=== PATIENT | female | born 2000 | race Caucasian/White ===

== ENCOUNTER 2024-11-18 09:02 | Outpatient (CLI) | payer OTHER, SELFPAY ==
--- NOTE | 2024-11-18 09:53 | P.TNLD_ITS ---
Visit Information Visit Information Date of evaluation: 11/18/24 Primary OB Provider: Teresita Wilkins On-call OB Provider: Mee Leyva Reason for Evaluation: Yes rule out labor and Yes rupture of membranes Comments/Additional reasons for admission: Patient is a at 39w6d who is here for concern of ROM. Vital Signs Vital Signs: BP 135/89; repeat 130/80 P 98 PFSH Medical History (Updated 11/14/24 @ 16:28 by Teresita Wilkins DO) Wrist fracture, left Surgical History (Updated 11/10/24 @ 15:13 by Angie Lucio, RN) [place] teeth extracted Family History (Updated 11/10/24 @ 15:16 by Angie Lucio, RN) Mother Diabetes mellitus Hypertension Father Hypertension History of thyroidectomy Thyroid disease Aunt Thyroid disease Grandfather Heart disease Grandfather Heart disease Social History marital status: number of children: 1 household members: spouse and children lives independently: Yes caregiver/support person: Yes housing: house pets and animals: No education level: college (some college) occupational status: unemployed current occupational exposures/hazards: No special melly needs: No travel history: recent (domestic only) seatbelt use: always helmet use: Yes water heater temp set < 120 deg: Yes working smoke detector in home: Yes fire extinguisher in home: Yes carbon monox detector in home: Yes firearms in home: Yes firearms unloaded and locked: Yes do you feel safe at home: Yes (answered w/ present) Smoking Status: Never smoker second hand exposure: No alcohol intake: former (very rarely when not ) substance use type: does not use during the past year weight has: other (back to normal non- weight prior to ) well-balanced diet: rarely or never daily servings fruits/ve-1 (1-2) caffeine: No Type(s) of exercise: walking Evaluation Evaluation Baseline heart rate: 145 Variability: Average (6-10) monitor accelerations: Present Monitor Decelerations: Absent Diagnosis, Plan/Disposition Plan/Disposition Plan: at 39w6d with concern for ROM. Amnisure negative. Cat 1 strip. Initial BP high end of normal. Repeat improved - 130/80. Safe for discharge home. OB Disposition: home
== END 2024-11-18 10:19 | disposition home or self-care (01) ==
LOC: LABOR 10:25 → OB 11:48
PROVIDERS: Referring Provider Student in an Organized Health Care Education/Training Program; Visit Provider Student in an Organized Health Care Education/Training Program
DX: Z03.71 Encounter for suspected problem with amniotic cavity and membrane ruled out (principal); Z3A.36 36 weeks gestation of pregnancy
CPT/HCPCS: 59025; 84112; G0378; G0379

== ENCOUNTER → 2024-11-29 11:38 | Outpatient (CLI) | payer OTHER, SELFPAY ==
[2024-11-30 13:20] LABS: Strep Grp B PCR NEG for Grp B Strep
== END ==
PROVIDERS: Visit Provider Student in an Organized Health Care Education/Training Program
DX: Z36.85 Encounter for antenatal screening for Streptococcus B (principal)
CPT/HCPCS: 87653

== ENCOUNTER 2024-12-09 19:28 | Inpatient (IN) | payer OTHER, SELFPAY ==
[2024-12-09 19:31] VITALS: BP 149/89
[2024-12-09 20:22] LABS: Add Manual Diff / Slide Review NO; Basophils Absolute Auto 100 /uL (0-100); Basophils Percent Auto 0.7 % (0-2); Eosinophils Absolute Auto 100 /uL (0-450); Eosinophils Percent Auto 0.7 % (2-4); Hematocrit 40.9 % (36-46); Lymphocytes Absolute Auto 2100 /uL (1100-4500); Lymphocytes Percent Auto 22.8 % (25-40); Mean Corpuscular HGB Conc 34.1 % (30-36); Mean Corpuscular Hemoglobin 30.7 PG (26-34); Mean Corpuscular Volume 90.1 fL (80-100); Monocytes Absolute Auto 700 /uL (0-900); Monocytes Percent Auto 7.3 % (3-14); Neutrophils Absolute Auto 6400 /uL (1500-7000); Neutrophils Percent Auto 68.5 % (50-75); Platelet Count 178 X10^3/uL (150-400); Red Blood Cell Count 4.55 X10^6/uL (4.0-5.2); Red Cell Distribution Width 13.2 % (11.6-14.8); White Blood Cell Count 9.4 X10^3/uL (4.5-11.0)
[2024-12-09 20:34] LABS: Alanine Aminotransferase 17 IU/L (<35); Albumin 3.7 g/dL (3.5-5.0); Albumin Globulin Ratio 1.2 (1.0-2.8); Alkaline Phosphatase 180 U/L (38-126); Aspartate Aminotransferase 31 IU/L (14-36); BUN Creatinine Ratio 21.9 (6-22); Bilirubin Total 0.3 mg/dL (0.2-1.3); Blood Urea Nitrogen 14 mg/dL (7-17); Calcium 9.2 mg/dL (8.4-10.2); Carbon Dioxide 20 mmol/L (22-32); Chloride 106 mmol/L (98-107); Estimated Glomerular Filt Rate > 60 mL/min (>60); Globulin 3.2 g/dL (1.7-4.1); Glucose 82 mg/dL (70-100); Sodium 134 mmol/L (137-145); Total Protein 6.9 g/dL (6.3-8.2); Uric Acid 6.4 mg/dL (2.5-6.2)
[2024-12-09 20:36] LABS: HEMOLYSIS 51 (0-50)
[2024-12-09 20:39] LABS: Creatinine Urine Random 107.39 mg/dL; Protein (Total) Urine Random 6 mg/dL (0-12); Protein Creatinine Ratio Urine 0.05 GRAM/24H
[2024-12-09] MEDS: ACETAMINOPHEN 325 MG TABLET 975 MG PO (21:14)
[2024-12-09] MEDS: LABETALOL 100 MG TABLET PO (21:14)
[2024-12-10 08:50] VITALS: BP 137/92; PULSE 70
[2024-12-10] MEDS: miSOPROStoL 25 MCG TABLET PO ×2 (08:50→13:01)
[2024-12-10] MEDS: LABETALOL 100 MG TABLET PO (08:50)
[2024-12-10 09:20] LABS: Add Manual Diff / Slide Review NO; Basophils Absolute Auto 0 /uL (0-100); Basophils Percent Auto 0.2 % (0-2); Eosinophils Absolute Auto 100 /uL (0-450); Eosinophils Percent Auto 0.8 % (2-4); Hematocrit 42.4 % (36-46); Hemoglobin 14.4 g/dL (12.0-16.0); Lymphocytes Absolute Auto 1700 /uL (1100-4500); Lymphocytes Percent Auto 21.6 % (25-40); Mean Corpuscular Hemoglobin 30.6 PG (26-34); Mean Corpuscular Volume 89.9 fL (80-100); Monocytes Absolute Auto 400 /uL (0-900); Monocytes Percent Auto 5.3 % (3-14); Neutrophils Absolute Auto 5700 /uL (1500-7000); Neutrophils Percent Auto 72.1 % (50-75); Platelet Count 173 X10^3/uL (150-400); Red Blood Cell Count 4.72 X10^6/uL (4.0-5.2); Red Cell Distribution Width 13.2 % (11.6-14.8); White Blood Cell Count 7.9 X10^3/uL (4.5-11.0)
[2024-12-10 10:09] LABS: Alanine Aminotransferase 18 IU/L (<35); Albumin 3.8 g/dL (3.5-5.0); Albumin Globulin Ratio 1.2 (1.0-2.8); Alkaline Phosphatase 200 U/L (38-126); Aspartate Aminotransferase 26 IU/L (14-36); BUN Creatinine Ratio 17.7 (6-22); Bilirubin Total 0.5 mg/dL (0.2-1.3); Blood Urea Nitrogen 11 mg/dL (7-17); Carbon Dioxide 17 mmol/L (22-32); Chloride 105 mmol/L (98-107); Estimated Glomerular Filt Rate > 60 mL/min (>60); Globulin 3.1 g/dL (1.7-4.1); Glucose 104 mg/dL (70-100); HEMOLYSIS < 15 (0-50); Potassium 3.6 mmol/L (3.4-5.1); Sodium 135 mmol/L (137-145); Total Protein 6.9 g/dL (6.3-8.2)
[2024-12-10 10:11] VITALS: BP 125/67; PULSE 65
--- NOTE | 2024-12-10 13:25 | P.HPOB_ITS ---
OB HPI Date/Time Date of admission: 12/10/24 Date Patient Seen: 12/10/24 Time Patient Seen: 13:25 History of Present Condition Chief complaint: told to come in [facility] Calculator 2 Estimated Delivery Date Method Current WG Current Estimate 12/17/24 LMP (Certain) 39w 0d Other Estimates 12/17/24 Manual 39w 0d Estimated Gestational Age (weeks): 39 : 3 Para: 1 Narrative: Patient presented last evening with elevated blood pressures. She also had a headache. Overnight initially her headache went away but then returned this morning. Blood pressures continued to be high. A decision was made to keep the patient and do cervical ripening/induction of labor. She has received 2 oral doses of misoprostol 25 mcg care: good care, initiated at week # (8), number of visits (11) and pounds weight gain (15) Dating criteria OB: LMP confirmed by 1st trimester US Ultrasounds: normal 1st trimester US and normal mid trimester US Obstetrical complications: gestational hypertension Medical complications OB: none Indications Indication for induction OB: gestational HTN/pre-eclampsia Preadmission Labs Last OB Lab Results: 2 Blood Type O Positive 12/10/24 08:30 Antibody Screen Negative 12/10/24 08:30 Hct 42.4 % (36-46) 12/10/24 08:50 Hgb 14.4 g/dL (12.0-16.0) 12/10/24 08:50 Group B Strep (PCR) Neg for grp b strep 11/29/24 11:45 -: Chlamydia screen: negative, Gonorrhea screen: negative and Urine: negative -: PAP smear: Normal External Labs -: Urine: negative Prior (ies) Past Pregnancies Del. Date GA/Weeks Labor Lgth Wt Sex Route Outcome Anesthesia Place Delv Breastfeed Preg Comp Name 01/04/22 37 16 6 lb 8 oz Male vaginal forceps live - full term epidural [facility] 3 month s pre- eclampsia Geoffrey 11/05/23 10 spontaneous Delivery Date: 11/05/23 Last Updated by: Angie Lucio RN passed spontaneously, no complications Hx # Term Pregnancies: 1 Hx # Pregnancies: 0 Number of Living Children: 1 Multiple births: 0 Spontaneous abortions: 1 Ectopic pregnancies: 0 Elective abortions: 0 Evaluation Evaluation Baseline heart rate: 150 Variability: Moderate (11-25) monitor accelerations: Present Monitor Decelerations: Absent Contraction Frequency (minutes): 10 Uterine Contraction Intensity: Mild Status: Category l Dilation (cm): 0 Effacement (%): 50 Dilation: Closed Effacement: 40-50% station: -3 Position of cervix: posterior Consistency: soft Lund score: 3 [facility] Medical History (Updated 11/23/24 @ 19:12 by Belén Lord) Painful menstrual periods (~2018) Hypertension (~2021) History of forceps delivery in prior , currently History of pre-eclampsia in prior , currently Wrist fracture, left Surgical History (Updated 11/23/24 @ 19:12 by Belén Lord) Anesthesia [place] teeth extracted (~02/03/24) Family History (Updated 11/23/24 @ 19:15 by Belén Lord) Mother Diabetes mellitus Hypertension Hyperlipidemia Father Hypertension History of thyroidectomy Thyroid disease Aunt Thyroid disease Grandfather Heart disease Grandfather Heart disease Cancer Sister Diabetes mellitus Grandmother Hypertension Grandmother Hyperlipidemia Social History marital status: number of children: 1 household members: spouse and children lives independently: Yes caregiver/support person: Yes housing: house pets and animals: No education level: college (some college) occupational status: unemployed current occupational exposures/hazards: No special melly needs: No travel history: recent (domestic only) seatbelt use: always helmet use: Yes water heater temp set < 120 deg: Yes working smoke detector in home: Yes fire extinguisher in home: Yes carbon monox detector in home: Yes firearms in home: Yes firearms unloaded and locked: Yes do you feel safe at home: Yes (answered w/ present) Smoking Status: Never smoker second hand exposure: No alcohol intake: former (very rarely when not ) substance use type: does not use during the past year weight has: other (back to normal non- weight prior to ) well-balanced diet: rarely or never daily servings fruits/ve-1 (1-2) caffeine: No Type(s) of exercise: walking Meds Home Medications and Allergies Home Medications Medication Instructions Recorded Confirmed Type aspirin 81 mg tablet,delayed 81 mg PO DAILY 11/10/24 11/29/24 History release (Adult Low Dose Aspirin) vitamin-ferrous sulfate tab PO 11/10/24 11/29/24 History 27 mg iron-folic acid 0.8 mg tablet Allergies Allergy/AdvReac Type Severity Reaction Status Date / Time No Known Drug Allergies Allergy Unverified 11/29/24 11:36 OB Exam Vital signs Blood Pressure: 158/98 Pulse Rate: 90 Narrative Exam Narrative: Generally: Patient in bed, no acute distress Lungs: Clear to auscultation bilaterally Cardiovascular: Regular rate and rhythm Fundal height: 39 cm Estimated weight: 7-1/2 lb Extremities: DTR 2+, 1+ edema non-pitting, no clonus Objective Labs 12/10/24 08:50 12/10/24 08:30 Labs: Laboratory Results - last 24 hr 12/09/24 12/09/24 12/10/24 19:40 20:13 08:30 WBC 9.4 RBC 4.55 Hgb 14.0 Hct 40.9 MCV 90.1 MCH 30.7 MCHC 34.1 RDW 13.2 Plt Count 178 Neut % (Auto) 68.5 Lymph % (Auto) 22.8 L [place] % (Auto) 7.3 Eos % (Auto) 0.7 L Baso % (Auto) 0.7 Neut # (Auto) 6400 Lymph # (Auto) 2100 [place] # (Auto) 700 Eos # (Auto) 100 Baso # (Auto) 100 Sodium 134 L 135 L Potassium 4.0 3.6 Chloride 106 105 Carbon Dioxide 20 L 17 L BUN 14 11 Creatinine 0.64 0.62 Estimated GFR > 60 > 60 BUN/Creatinine Ratio 21.9 17.7 Glucose 82 104 H Uric Acid 6.4 H Calcium 9.2 9.0 Total Bilirubin 0.3 0.5 AST 31 26 ALT 17 18 Alkaline Phosphatase 180 H 200 H Total Protein 6.9 6.9 Albumin 3.7 3.8 Globulin 3.2 3.1 Albumin/Globulin Ratio 1.2 1.2 U Random Total Protein 6 Urine Creatinine 107.39 Protein/Creatinin Ratio 0.05 Blood Type O Positive Antibody Screen Negative 12/10/24 08:50 WBC 7.9 RBC 4.72 Hgb 14.4 Hct 42.4 MCV 89.9 MCH 30.6 MCHC 34.0 RDW 13.2 Plt Count 173 Neut % (Auto) 72.1 Lymph % (Auto) 21.6 L [place] % (Auto) 5.3 Eos % (Auto) 0.8 L Baso % (Auto) 0.2 Neut # (Auto) 5700 Lymph # (Auto) 1700 [place] # (Auto) 400 Eos # (Auto) 100 Baso # (Auto) 0 Sodium Potassium Chloride Carbon Dioxide BUN Creatinine Estimated GFR BUN/Creatinine Ratio Glucose Uric Acid Calcium Total Bilirubin AST ALT Alkaline Phosphatase Total Protein Albumin Globulin Albumin/Globulin Ratio U Random Total Protein Urine Creatinine Protein/Creatinin Ratio Blood Type Antibody Screen Assessment and Plan Assessment and Plan Assessment and Plan narrative: Assessment: 24-year-old 3 para 1 at 39 weeks' gestation with gestational hypertension History of severe preeclampsia History of forceps assisted delivery due to nonreassuring heart rate tracing Patient with persistent elevated blood pressures and headache Normal preeclampsia labs Unfavorable cervix Plan: Cervical ripening with misoprostol Pitocin induction of labor when cervix favorable Labetalol 100 mg b.i.d. Time-Based Coding :: [TOTAL MINUTES] spent with patient and on the chart (including review of chart, obtaining history, exam, reviewing outside data, placing orders, documenting exam and treatment plan, and counseling patient) on [DATE].
[2024-12-10 13:35] VITALS: BP 158/98; PULSE 90
[2024-12-10] MEDS: LACTATED RINGERS 1,000 ML 100 ML IV (16:26)
[2024-12-10] MEDS: OXYTOCIN PREMIX 30 UNIT/500 ML PLAST..BAG IV (16:34)
--- NOTE | 2024-12-10 20:25 | PM.OBPNLAB ---
Date/Time Date Patient Seen: 12/10/24 Time Patient Seen: 20:25 Pain Control Pain control: tolerating well Pelvic Exam Dilation (cm): 1 Effacement (%): 50 station: -3 Amniotic membrane status: Intact Contractions Pitocin rate (mU/min): 2 Contraction frequency (min): 5 Contraction pattern: Irregular Contraction intensity: Mild Status status: Category l Heart Rate Baseline: 135 Monitor Accelerations: Present Monitor Decelerations: Absent Monitor Variability: Moderate Assessment and Plan Assessment: induction ongoing Comments: Will check cervix at 2215 and if there is no significant cervical change, we will stop Pitocin and restart in am Epidural as needed Expectant management to
[2024-12-10] MEDS: NIFEdipine 30 MG TAB ER PO (22:29)
--- NOTE | 2024-12-11 00:08 | PM.AN.REGBLK ---
Regional Block Pre-procedure PMH/ROS narrative: 39/0. Presented with elevated BP and H/A, admitted for IOL. Now requesting epidural for labor pain management Exam narrative: See pre-anesthesia evaluation ASA Class: II Labs: Hct 42.4 % (36-46) 12/10/24 08:50 Plt Count 173 X10^3/uL (150-400) 12/10/24 08:50 Medications: Current Medications Generic Name Dose Route Start Last Admin Trade Name Freq PRN Reason Stop Dose Admin Calcium Carbonate 1,000 mg 12/10/24 07:56 Calcium Carbonate 500 Mg Tab PO Q2HR PRN Dyspepsia Carboprost Tromethamine 250 mcg 12/10/24 07:56 Carboprost 250 Mcg/Ml Ampul IM Q90M PRN Bleeding Diphenhydramine HCl 25 mg 12/10/24 23:14 Diphenhydramine 50 Mg/Ml Vial IV Q10M PRN Pruritis Ephedrine Sulfate 10 mg 12/10/24 23:14 Ephedrine 50 Mg/Ml Vial IV Q5M PRN Blood pressure decrease more than 20% of baseline. Fentanyl 50 mcg 12/10/24 07:56 Fentanyl 100 Mcg/2 Ml Inj IV Q1H PRN Pain, Moderate (4-6) Oxytocin/Lactated Ringer's 30 unit in 500 mls @ 200 mls/hr 12/10/24 07:56 Oxytocin Premix IV CONT PRN Bleeding Protocol Tranexamic Acid 1,000 mg/ 100 mls @ 600 mls/hr 12/10/24 07:56 Sodium Chloride IV NOW PRN Bleeding Oxytocin/Lactated Ringer's 30 unit in 500 mls @ 1 mls/hr 12/10/24 16:45 12/10/24 16:34 Oxytocin Premix IV 1 milliunit/min TITRATE SUZIE 1 mls/hr Administration Protocol 1 MILLIUNIT/MIN Lactated Ringer's 1,000 mls @ 1,000 mls/hr 12/10/24 23:14 Lactated Ringers IV 12/11/24 00:13 BOLUS ONE FENT 2MCG/ML BUPIV 0.125% EPI 200 mcg in 100 mls @ 6 mls/hr 12/10/24 23:15 Fentanyl/Bupiv/Ns 2mcg/Ml - 0.125% EPIDURAL CONT SUZIE Labetalol HCl 100 mg 12/10/24 09:00 12/10/24 08:50 Labetalol 100 Mg Tablet PO 100 mg BID SUZIE Administration Lidocaine HCl 20 ml 12/10/24 07:56 Lidocaine 1% 20 Ml INJ INTRA-OP PRN Post Delivery Methylergonovine Maleate 0.2 mg 12/10/24 07:56 Methylergonovine 0.2 Mg Tablet PO Q6HR PRN Heavy Bleeding Methylergonovine Maleate 0.2 mg 12/10/24 07:56 Methylergonovine 0.2 Mg/Ml Vial IM NOW PRN Bleeding Mineral Oil 30 ml 12/10/24 07:56 Mineral Oil 30 Ml Udc TOP PRN PRN Version Misoprostol 800 mcg 12/10/24 07:56 Misoprostol 200 Mcg Tablet ID NOW PRN Bleeding Misoprostol 400 mcg 12/10/24 07:56 Misoprostol 200 Mcg Tablet SL NOW PRN Bleeding Misoprostol 50 mcg 12/10/24 13:31 Misoprostol 200 Mcg Tablet SL Q4H PRN Labor Induction Nalbuphine HCl 2.5 mg 12/10/24 23:14 Nalbuphine 20 Mg/Ml Ampul IV Q10M PRN Pruritis Naloxone HCl 0.2 mg 12/10/24 07:56 Naloxone 0.4 Mg/Ml Vial IV Q2MIN PRN Opiate Reversal Ondansetron HCl 4 mg 12/10/24 07:56 Ondansetron 4 Mg/2 Ml Inj IV Q4HR PRN Nausea And Vomiting Oxytocin 10 unit 12/10/24 07:56 Oxytocin 10 Unit/Ml Vial IM NOW PRN Bleeding Zolpidem Tartrate 5 mg 12/09/24 21:36 Zolpidem 5 Mg Tablet PO BEDTIME PRN Sleep Allergies: Allergies Allergy/AdvReac Type Severity Reaction Status Date / Time No Known Drug Allergies Allergy Unverified 11/29/24 11:36 Procedure Insertion date: 12/10/24 Insertion time: 23:24 Prep/Local: 1% lidocaine (Chloraprep) Interspace: L3-L4 Patient position: sitting Needle: 18 gauge Shilpi Loss of resistance with: saline ANTOINE at (cm): 7 Catheter placed at SKIN (cm): 16 Insertion: Yes CSF, No Blood, No Paresthesia with insertion, No Paresthesia with injection and No Test dose reaction Initial Medications TEST DOSE time: 23:36 TEST DOSE: 1.5% lidocaine with epinephrine 1:200k (mL): 3 BOLUS DOSE time: 23:38 BOLUS DOSE med: other (25mcg fentanyl intrathecal with CSE, then 75mcg fentanyl, 2ml 1.5% lidocaine with epinephrine 1:200k and 2 ml 1% lidocaine plain as an epidural bolus) Infusion INFUSION: 0.125% bupivacaine and with fentanyl 2 mcg/mL Initial rate (mL/hr): 6 Subsequent interventions: Clinician bolus 5ml before leaving the room Post-procedure Anesthesia date START: 12/10/24 Anesthesia time START: 23:24 Anesthesia date END: 12/11/24 Anesthesia time END: 00:16 Post-procedure Anesthesia Assessment: Yes CV function: HR/BP stable, Yes Resp function: RR/sat/airway adequate, Yes Post-op hydration adequate, Yes Pain control adequate, Yes Nausea & vomiting absent, Yes Temperature > 36 C, Yes Mental status appropriate and No Anesthesia complications
--- NOTE | 2024-12-11 00:18 | P.PCNOB_ITS ---
Labor & Delivery Delivery date: 12/11/24 Delivery Time: 00:01 Cervical ripening method: per misoprostal protocol Induction method: per pitocin protocol Delivery monitor: external FHT and external uterine Route of delivery: Episiotomy description: None L&D Laceration Description: Periurethral - 1st Degree (right) and Perineal - 1st Degree Delivery repair: chromic Quantitative Blood Loss: 150 Anesthesia Type: Epidural Complications: None Narrative: Patient complete and pushed x1. At 12:01 a.m., a live female delivered spontaneously in the JOSHUA presentation, over an intact perineum. No nuchal cord. The remainder of the body delivered without difficulty and was placed on mom's abdomen. There was a short umbilical cord. After the cord stopped pulsing, the cord was double clamped and cut. Cord bloods were obtained. Pitocin was given in the IV fluids. At 12:04 a.m., the placenta delivered intact with a three- vessel cord. The fundus was massaged to firm. The perineum and vagina were inspected and there was a right periurethral laceration as well as a first- degree vaginal/perineal laceration. These were repaired with 2-0 chromic in the usual fashion. Hemostasis was achieved. Apgars 9 at 1 minute and 10 at 5 minutes. . Epidural analgesia. 4 x 4, lap, and instrument counts were correct x2. Mom and infant stable to recovery. [place] Baby 1: gender: Female Presentation: vertex Position: Right Occiput Anterior Placenta delivery description: Spontaneous Cord Vessel Description: 3 Vessels and Clamped/Cut (after one minute) score (1 min): 9 score (5 min): 10 weight: 7 lb 1.7 oz Plan for aftercare: Routine care
[2024-12-11] MEDS: IBUPROFEN 600 MG TABLET PO ×4 (05:17→23:19)
[2024-12-11] MEDS: ACETAMINOPHEN 325 MG TABLET 650 MG PO ×4 (05:17→23:19)
[2024-12-11] MEDS: DERMOPLAST SPRAY 20% 60 ML 1 SPRAY TOP (05:18)
[2024-12-11] MEDS: WITCH HAZEL/GLYCERIN PADS 1 EACH TOP (11:15)
[2024-12-11] MEDS: DOCUSATE 100 MG CAPSULE PO (11:15)
[2024-12-11] MEDS: PRENATAL VIT,CALC/IRON/FOLIC 1 TABLET 1 TAB PO (11:18)
--- NOTE | 2024-12-12 02:07 | PM.OBPN.1 ---
Subjective - OB Subjective Patient comments: no complaints and pain well controlled baby status: doing well and nursing well feeding status: exclusively breast feeding Date Patient Seen: 12/11/24 Time Patient Seen: 11:45 Interval history: day # 0-1 status post spontaneous vaginal delivery without complication. Blood pressures have been stable. No headache or blurred vision. No spots before her eyes. Exam Narrative Exam Narrative: Generally: Patient is sitting up in bed, holding , no acute distress Fundus: Firm at U Extremities: Trace edema, negative Homans Objective Labs 12/10/24 08:50 12/10/24 08:30 Assessment & Plan Plan day: 1 plan OB: routine care Comments: Continue to watch blood pressure Anticipate discharge December 12, 2024 Time-Based Coding :: [TOTAL MINUTES] spent with patient and on the chart (including review of chart, obtaining history, exam, reviewing outside data, placing orders, documenting exam and treatment plan, and counseling patient) on [DATE].
[2024-12-12] MEDS: ACETAMINOPHEN 325 MG TABLET 650 MG PO ×2 (05:16→11:05)
[2024-12-12] MEDS: IBUPROFEN 600 MG TABLET PO ×2 (05:16→11:04)
[2024-12-12] MEDS: DOCUSATE 100 MG CAPSULE PO (09:21)
[2024-12-12] MEDS: PRENATAL VIT,CALC/IRON/FOLIC 1 TABLET 1 TAB PO (09:21)
[2024-12-12 13:18] VITALS: BP 109/75; PULSE 78; RESP 18; TEMP 36.1
--- NOTE | 2024-12-13 00:20 | PM.DS.IH.1 ---
History of Present Illness History of Present Illness Date Patient Seen: 12/12/24 Time Patient Seen: 12:00 Chief complaint: told to come in Narrative: day # 0-1 status post spontaneous vaginal delivery without complication. Blood pressures have been stable. No headache or blurred vision. No spots before her eyes. Discharge Providers Provider Date of admission: 12/09/24 19:28 Discharge Date: 12/12/24 Primary care physician: Doctor Ritika MD Consults: 12/10/24 07:56 Consult to Anesthesiology Urgent Comment: Consulting Provider: Mesha Oropeza Reason for consultation: Epidural 12/12/24 00:15 Consult to Vtc Technician Routine Comment: Discharge provider: Franny Gómez MD Summary Hospital Course Discharge Diagnosis: Thirty-nine weeks gestation Gestational hypertension Cervical ripening Spontaneous vaginal delivery Hospital Course: Patient is a 24-year-old 3 para 2 who presented on December 10, 2024 with elevated blood pressures. We observed overnight and on the morning of December 11, 2024 she continued to have elevated blood pressures although no evidence of severe preeclampsia. Patient expressed the desire to be induced. She received cervical ripening x2 doses. She was started on Pitocin and then received an epidural for pain management. Artificial rupture of membranes was performed with clear amniotic fluid. She progressed to complete dilation and had an uncomplicated spontaneous vaginal delivery. She was continued on nifedipine XL . Her blood pressures never went into the severe range. She was discharged home on day # 1-2. She will continue on nifedipine XL 30 mg p.o. q.day. Status at Discharge Cognitive/behavioral status at discharge: oriented Functional status at discharge: independent ambulation Overall status at discharge: patient is progressing back to baseline Time Spent with Patient Time spent: Less than 30 minutes Exam Narrative Exam Narrative: Generally: Patient is sitting up in bed, nursing infant, no acute distress Fundus: Firm at U -1 Extremities: Trace edema, 1+ DTRs, no clonus, negative Homans Objective Labs 12/10/24 08:50 12/10/24 08:30 [facility] Medical History (Updated 11/23/24 @ 19:12 by Belén Lord) Painful menstrual periods (~2018) Hypertension (~2021) History of forceps delivery in prior , currently History of pre-eclampsia in prior , currently Wrist fracture, left Surgical History (Updated 11/23/24 @ 19:12 by Belén Lord) Anesthesia [place] teeth extracted (~02/03/24) Family History (Updated 11/23/24 @ 19:15 by Belén Lord) Mother Diabetes mellitus Hypertension Hyperlipidemia Father Hypertension History of thyroidectomy Thyroid disease Aunt Thyroid disease Grandfather Heart disease Grandfather Heart disease Cancer Sister Diabetes mellitus Grandmother Hypertension Grandmother Hyperlipidemia Social History marital status: number of children: 1 household members: spouse and children lives independently: Yes caregiver/support person: Yes housing: house pets and animals: No education level: college occupational status: unemployed current occupational exposures/hazards: No special melly needs: No travel history: recent seatbelt use: always helmet use: Yes water heater temp set < 120 deg: Yes working smoke detector in home: Yes fire extinguisher in home: Yes carbon monox detector in home: Yes firearms in home: Yes firearms unloaded and locked: Yes do you feel safe at home: Yes (answered w/ present) Smoking Status: Never smoker second hand exposure: No alcohol intake: former substance use type: does not use during the past year weight has: other well-balanced diet: rarely or never daily servings fruits/ve-1 caffeine: No Type(s) of exercise: walking Discharge Assessment & Plan Assessment and Plan Assessment: day #1-2 status post cervical ripening and induction of labor due to gestational hypertension Spontaneous vaginal delivery Patient doing very well Plan of Treatment: Discharged to home Follow-up in 2 weeks Warning signs for preeclampsia and hemorrhage reviewed Discharge Plan Discharge Plan Patient Disposition: Home Provider Discharge Comment: Call with fever, chills, or bleeding vaginally more than a pad in an hour Call with headache, blurred vision, spots before her eyes, or right upper quadrant pain Ibuprofen 600 mg every 6 hours as needed for cramping Tylenol 650 mg every 6 hours as needed for pain Discharge orders & Medications Prescriptions: New nifedipine 30 mg tablet extended release 30 mg PO DAILY Qty: 30 1RF Continued vit-ferrous sulfat-FA 27 mg iron- 0.8 mg tablet PO Discontinued aspirin [Adult Low Dose Aspirin] 81 mg tablet,delayed release (DR/EC) 81 mg PO DAILY Follow up/Referrals: Teresita Wilkins DO [Physician] - (Follow-up in 2 weeks via telehealth appointment with Dr. Wilkins on ThursdayDecember 26 at 4:00pm. Folluw-up in [address] Wilkins on ThursdayJanuary 23 at 11:30am. ) Diet/Activity/Treatments Diet: Regular Activity: Nothing in the vagina for 6 weeks Skin/Wound/Dressing Care Report to your healthcare provider any signs of infection, such as:: chills, fever, increased pain and unusual drainage Visit Report/Discharge Packet Instructions: DI for Labor and Delivery, Vaginal , Preeclampsia and Eclampsia After Childbirth Stand Alone Forms: Discharge: Care, Patient Portal/API, Stroke Signs & Symptoms Discharge Data Primary Care Provider: Miscellaneous,Doctor PROFEE Charge Codes Discharge inpatient/observation: [id number]
== END 2024-12-12 12:54 | disposition home or self-care (01) | DRG 806 ==
PROVIDERS: Admitting Provider Obstetrics & Gynecology; Referring Provider Obstetrics & Gynecology; Visit Provider Obstetrics & Gynecology
DX: O13.4 Gestational [pregnancy-induced] hypertension without significant proteinuria, complicating childbirth (principal); O99.354 Diseases of the nervous system complicating childbirth; Z37.0 Single live birth; R51.9 Headache, unspecified; O70.0 First degree perineal laceration during delivery; O71.82 Other specified trauma to perineum and vulva; Z3A.39 39 weeks gestation of pregnancy
CPT/HCPCS: 36415; 59050; 80053; 84550; 85025; 86850; 86900; 86901; G0379; J2590; J3010

== ENCOUNTER → 2025-04-11 08:12 | Outpatient (CLI) | payer OTHER, SELFPAY | PROVIDERS: Visit Provider Chiropractor | DX: J02.9 Acute pharyngitis, unspecified (principal) | CPT/HCPCS: 87070 ==